=== PATIENT | female | born 1960 | race Caucasian/White ===

== ENCOUNTER 2019-02-09 10:58 | Emergency (ER) | payer OTHER ==
[~2019-02-09] VITALS: Ht 170.2 cm; Wt 74.4 kg
[2019-02-09 11:15] VITALS: BP 156/90
== END 2019-02-09 13:10 | disposition home or self-care (01) ==
LOC: ED 13:04
DX: H66.002 Acute suppurative otitis media without spontaneous rupture of ear drum, left ear (principal); H69.92 Unspecified Eustachian tube disorder, left ear; E07.9 Disorder of thyroid, unspecified; Z88.0 Allergy status to penicillin
CPT/HCPCS: 99283